=== PATIENT | female | born 1990 | race American Indian/Alaskan Native ===

== ENCOUNTER 2018-03-10 09:41 | Outpatient (CLI) | payer BC ==
[2018-03-10] MEDS ORDERED: LACTATED RINGERS 500 ML IV ONE (10:43)
[2018-03-10 11:47] LABS: Bacteria,Urine 1+ /HPF (Negative); Bilirubin,Urine NEG (Negative); Blood,Urine SM (Negative); Color,Urine Yellow (Yellow); Mucus,Urine FEW /HPF; Protein,Urine <15 mg/dL mg/dL (Negative); Urobilinogen,Urine < 2.0 mg/dL (<2.0)
[2018-03-10] MEDS ORDERED: cefTRIAXone 1 GM in NACL 0.9% 20 ML IV ONE (13:13)
[2018-03-10] MEDS ORDERED: LACTATED RINGERS 1,000 ML ONE (14:43)
[2018-03-10 16:22] VITALS: BP 99/56
== END 2018-03-10 15:50 | disposition home or self-care (01) ==
LOC: TRG 09:41
PROVIDERS: ATTEND Obstetrics & Gynecology
DX: O47.03 False labor before 37 completed weeks of gestation, third trimester (principal); Z3A.31 31 weeks gestation of pregnancy
CPT/HCPCS: 59025; 81001; 87076; 87086; 87186; 96360; 96365; J0696; J7120